=== PATIENT | female | born 1940 | race American Indian/Alaskan Native ===

== ENCOUNTER 2017-08-25 08:20 | Observation (INO) | payer MEDICARE ==
[2017-08-25 09:36] LABS: SQUAMOUS EPITHIAL 1 /hpf (0-5); URINE BACTERIA RARE (<OCC); URINE BILIRUBIN NEGATIVE (NEGATIVE); URINE BLOOD NEGATIVE (NEGATIVE); URINE CLARITY Clear (Clear); URINE COLOR Straw (YELLOW); URINE GLUCOSE (UA) NORMAL (Normal); URINE LEUKOCYTE ESTERASE 1+ Leu/uL (Negative); URINE PROTEIN NEGATIVE (NEGATIVE); URINE UROBILINOGEN NORMAL mg/dL (0.2-1.0)
[2017-08-25 09:39] LABS: BASO # 0.1 K/uL (0.0-0.2); BASO % 1.1 % (0.0-2.0); EOS # 0.1 K/uL (0.0-0.7); EOS % 1.5 % (0.0-4.0); HEMOGLOBIN 11.5 g/dL (11.0-16.0); LYMPH % 27.8 % (20.0-40.0); MEAN CELL VOLUME 93.2 fL (81.0-99.0); MEAN CORPUSCULAR HGB CONC 34.3 g/dL (33.0-37.0); MEAN PLATELET VOLUME 6.6 fL (7.2-11.7); MONO # 0.9 K/uL (0.0-0.8); MONO % 13.3 % (0.0-10.0); NEUT % 56.3 % (50.0-75.0); NRBC % 0.1 % (0.0-2.0); RBC 3.59 Mil/uL (3.80-5.20); RED CELL DISTRIBUTION WIDTH 16.1 % (11.5-14.5)
[2017-08-25 09:47] LABS: PROTHROMBIN TIME 11.6 SECONDS (9.7-12.2)
--- NOTE | 2017-08-25 09:55 | CT ---
PROCEDURE: CT HEAD WITHOUT CONTRAST. HISTORY: left sided numbness COMPARISON: None available. TECHNIQUE: Axial computed tomography images were obtained through the head/brain without intravenous contrast. Radiation dose: Total exam DLP = 868 mGy-cm. This CT exam was performed using one or more of the following dose reduction techniques: Automated exposure control, adjustment of the mA and/or kV according to patient size, and/or use of iterative reconstruction technique. FINDINGS: HEMORRHAGE: No intracranial hemorrhage. BRAIN: No mass effect or edema. Scattered focal lucencies in the subcortical and periventricular white matter suggestive for chronic microvascular ischemic change. Bilateral basal ganglia calcifications. VENTRICLES: Unremarkable. No hydrocephalus. CALVARIUM: Unremarkable. PARANASAL SINUSES: Unremarkable as visualized. No significant inflammatory changes. MASTOID AIR CELLS: Unremarkable as visualized. No inflammatory changes. OTHER FINDINGS: None. IMPRESSION: Chronic microvascular ischemic change. Bilateral basal ganglia calcifications. If symptoms persist, consider further evaluation with MRI.
[2017-08-25 09:56] LABS: ALBUMIN 4.3 g/dL (3.5-5.0); ALT/SGPT 17 U/L (9-52); AST/SGOT 37 U/L (14-36); BLOOD UREA NITROGEN 11 mg/dL (7-17); CALCIUM 9.4 mg/dl (8.6-10.4); GFR AFRICAN-AMERICAN > 60; GFR NON-AFRICAN AMERICAN > 60
[2017-08-25 10:04] LABS: CK-MB 2.28 ng/mL (0.0-3.38)
--- NOTE | 2017-08-25 12:18 | C.PDOC ---
History Of Present Illness 77 y/o female presents to the ER complaining of intermittent left-sided numbness of the left arm and left leg which began at 9:00 am yesterday. Patient states that she is taking Macrobid which was given by her PMD for UTI. Patient reports that she feels weak sometimes when she has numbness. Time Seen by Provider: 08/25/17 08:32 Chief Complaint (Nursing): Weakness/Neurological Deficit History Per: Patient History/Exam Limitations: no limitations Onset/Duration Of Symptoms: Days Current Symptoms Are (Timing): Still Present Severity: Moderate Past Medical History Reviewed: Historical Data, Nursing Documentation, Vital Signs Vital Signs: Last Vital Signs Temp 97.7 F 08/25/17 08:28 Pulse 92 H 08/25/17 13:20 Resp 16 08/25/17 13:20 BP 142/68 08/25/17 13:20 Pulse Ox 100 08/25/17 14:55 - Medical History PMH: Hypothyroidism Other Surgeries: Hx of surgeries Family History: States: No Known Family Hx - Social History Hx Alcohol Use: No Hx Substance Use: No - Immunization History Hx Tetanus Toxoid Vaccination: No Hx Influenza Vaccination: No Hx Pneumococcal Vaccination: Yes Review Of Systems Except As Marked, All Systems Reviewed And Found Negative. Constitutional: Negative for: Fever, Chills Neurological: Positive for: Numbness (left-sided numbness). Negative for: Weakness Physical Exam - Physical Exam Appears: Non-toxic, No Acute Distress Skin: Normal Color, Warm, Dry Head: Atraumatic, Normacephalic Eye(s): bilateral: Normal Inspection Nose: Normal Oral Mucosa: Moist Neck: Supple Chest: Symmetrical Cardiovascular: Rhythm Regular Respiratory: Normal Breath Sounds, No Rales, No Rhonchi, No Wheezing Extremity: Normal ROM Neurological/Psych: Oriented x3, Normal Speech, Normal Motor, No Normal Sensation (decreased sensation in left arm and left leg) ED Course And Treatment - Laboratory Results Result Diagrams: 08/25/17 09:33 08/25/17 09:33 O2 Sat by Pulse Oximetry: 100 (RA) Pulse Ox Interpretation: Normal - Other Rad CXR X-Ray: Viewed By Me, Read By Radiologist Interpretation: Chest x-ray single frontal view. History: Left-sided numbness. Comparison: None available. Findings: Enlarged ectatic aorta. Cardiomegaly. Right paratracheal prominence may represent prominent vasculature. Mild venous congestion. Degenerative changes in the spine and shoulders. Impression: Enlarged ectatic aorta. Cardiomegaly. Right paratracheal prominence may represent prominent vasculature. Mild venous congestion. - CT Scan/US CT-Head Other Rad Studies (CT/US): Read By Radiologist, Radiology Report Reviewed CT/US Interpretation: PROCEDURE: CT HEAD WITHOUT CONTRAST. HISTORY: left sided numbness. COMPARISON: None available. TECHNIQUE: Axial computed tomography images were obtained through the head/brain without intravenous contrast. Radiation dose: Total exam DLP = 868 mGy-cm. This CT exam was performed using one or more of the following dose reduction techniques: Automated exposure control, adjustment of the mA and/or kV according to patient size, and/or use of iterative reconstruction technique. FINDINGS: HEMORRHAGE: No intracranial hemorrhage. BRAIN: No mass effect or edema. Scattered focal lucencies in the subcortical and periventricular white matter suggestive for chronic microvascular ischemic change. Bilateral basal ganglia calcifications. VENTRICLES: Unremarkable. No hydrocephalus. CALVARIUM: Unremarkable. PARANASAL SINUSES: Unremarkable as visualized. No significant inflammatory changes. MASTOID AIR CELLS: Unremarkable as visualized. No inflammatory changes. OTHER FINDINGS: None. IMPRESSION: Chronic microvascular ischemic change. Bilateral basal ganglia calcifications. If symptoms persist, consider further evaluation with MRI. Progress Note: Labs, CXR, and CT- Head ordered.Case discussed with Dr.Naresh Shaikh. MRI was ordered and consult for was ordered. Patient has been accepted by Dr.Naresh Shaikh for Telemetry observation. Disposition - Disposition Disposition: HOSPITALIZED Disposition Time: 12:46 Condition: FAIR - Clinical Impression Clinical Impression: Numbness and tingling of left upper and lower extremity - PA / [employer] / Resident Statement MD/DO has reviewed & agrees with the documentation as recorded. - Scribe Statement The provider has reviewed the documentation as recorded by the Rivka Magallanes Provider Attestation All medical record entries made by the Adeolaibbc were at my direction and personally dictated by me. I have reviewed the chart and agree that the record accurately reflects my personal performance of the history, physical exam, medical decision making, and the department course for this patient. I have also personally directed, reviewed, and agree with the discharge instructions and disposition.
--- NOTE | 2017-08-25 12:39 | RAD ---
Chest x-ray single frontal view History: Left-sided numbness. Comparison: None available. Findings: Enlarged ectatic aorta. Cardiomegaly. Right paratracheal prominence may represent prominent vasculature. Mild venous congestion. Degenerative changes in the spine and shoulders. Impression: Enlarged ectatic aorta. Cardiomegaly. Right paratracheal prominence may represent prominent vasculature. Mild venous congestion.
--- NOTE | 2017-08-25 13:29 | CP.PCM.CON ---
History of Present Illness - History of Present Illness History of Present Illness: 77 yr old woman who started to suddenly have left arm and left leg numbness and tingling, new onset. Miss denis says that she has not had similar spells in the past, no headache, no weakness, no aphasia, no other complaints. These symptoms resolved and she is now back to baseline. PMH/PSH: Hypertension FH/SH: lives alone, has one child. no tobacco, no etoh. All: penicilin on exam: Normal neurological examination. no drift. Past Patient History - Past Social History Smoking Status: Never Smoked - ENDOCRINE/METABOLIC Hx Hypothyroidism: Yes - PSYCHIATRIC Hx Substance Use: No - SURGICAL HISTORY Hx Hysterectomy: Yes Hx Thyroidectomy: Yes - ANESTHESIA Hx Anesthesia: Yes Hx Anesthesia Reactions: No Meds Allergies/Adverse Reactions: Allergies Allergy/AdvReac Type Severity Reaction Status Date / Time aspirin Allergy Verified 08/25/17 08:36 Penicillins Allergy Verified 08/25/17 08:36 shellfish derived Allergy Verified 08/25/17 08:36 Results - Vital Signs Recent Vital Signs: Last Vital Signs Temp 97.7 F 08/25/17 08:28 Pulse 92 H 08/25/17 13:20 Resp 16 08/25/17 13:20 BP 142/68 08/25/17 13:20 Pulse Ox 100 08/25/17 13:20 - Labs Result Diagrams: 08/25/17 09:33 08/25/17 09:33 Labs: Laboratory Results - last 24 hr 08/25/17 08/25/17 08/25/17 09:24 09:33 09:33 WBC 7.0 RBC 3.59 L Hgb 11.5 Hct 33.4 L MCV 93.2 MCH 32.0 H MCHC 34.3 RDW 16.1 H Plt Count 370 MPV 6.6 L Neut % (Auto) 56.3 Lymph % (Auto) 27.8 [place] % (Auto) 13.3 H Eos % (Auto) 1.5 Baso % (Auto) 1.1 Neut # (Auto) 4.0 Lymph # (Auto) 2.0 [place] # (Auto) 0.9 H Eos # (Auto) 0.1 Baso # (Auto) 0.1 PT 11.6 INR 1.0 APTT 26 Sodium Potassium Chloride Carbon Dioxide Anion Gap BUN Creatinine Est GFR ( Amer) Est GFR (Non-Af Amer) Random Glucose Calcium Total Bilirubin AST ALT Alkaline Phosphatase Total Creatine Kinase CK-MB (Mass) Troponin I Total Protein Albumin Globulin Albumin/Globulin Ratio Urine Color Straw Urine Clarity Clear Urine pH 7.0 Ur Specific [place] 1.008 Urine Protein Negative Urine Glucose (UA) Normal Urine Ketones Negative Urine Blood Negative Urine Nitrate Negative Urine Bilirubin Negative Urine Urobilinogen Normal Ur Leukocyte Esterase 1+ H Urine WBC (Auto) 2 Urine RBC (Auto) < 1 Ur Squamous Epith Cells 1 Urine Bacteria Rare 08/25/17 09:33 WBC RBC Hgb Hct MCV MCH MCHC RDW Plt Count MPV Neut % (Auto) Lymph % (Auto) [place] % (Auto) Eos % (Auto) Baso % (Auto) Neut # (Auto) Lymph # (Auto) [place] # (Auto) Eos # (Auto) Baso # (Auto) PT INR APTT Sodium 137 Potassium 4.1 Chloride 93 L Carbon Dioxide 26 Anion Gap 22 H BUN 11 Creatinine 0.7 Est GFR ( Amer) > 60 Est GFR (Non-Af Amer) > 60 Random Glucose 99 Calcium 9.4 Total Bilirubin 0.7 AST 37 H ALT 17 Alkaline Phosphatase 75 Total Creatine Kinase 125 CK-MB (Mass) 2.28 Troponin I < 0.0120 Total Protein 8.7 H Albumin 4.3 Globulin 4.4 H Albumin/Globulin Ratio 1.0 Urine Color Urine Clarity Urine pH Ur Specific [place] Urine Protein Urine Glucose (UA) Urine Ketones Urine Blood Urine Nitrate Urine Bilirubin Urine Urobilinogen Ur Leukocyte Esterase Urine WBC (Auto) Urine RBC (Auto) Ur Squamous Epith Cells Urine Bacteria - Imaging and Cardiology CT scan - pelvis Status: Image reviewed by me, Report reviewed by me Assessment & Plan - Assessment and Plan (Free Text) Assessment: 77 yr old woman with what may be lacunar infarct in right thalamus area, now resolved. Plan: 1 MRI Brain needed. If normal, then patient may go home. Thank you DR. Hilario
--- NOTE | 2017-08-25 14:17 | CP.PCM.HP ---
History of Present Illness - History of Present Illness History of Present Illness: HPI: Patient is a 77 year old female with a past medical history of HTN, hypothyroidism, benign right breast mass, and vitamin B 12 deficiency who presents to the ED complaining of left sided numbness and tingling of the upper and lower extremity. Patient says this has been coming and going for 2 days. Patient says she usually feels numbness in her arms and legs from peripheral neuropathy but it has been getting worse the past couple days. Patient says it started worsening after she took the macrobid and was sitting watching TV. She it lasted about an hour but goes away when she gets up to walk, drinks water, or takes her gabapentin. Patient admits to associated SOB, and "funny sensation " in chest that she cant elaborate on with redness of the chest wall. She also admits to left sided headache that started this morning. She denies any associated dizziness, changes in vision/hearing, aphasia, dysphagia, changes in taste, syncope, seizure, loss of balance, dysuria, cough, and weakness. PMH: HTN, hypothyroidism, benign right breast mass, vitamin B 12 deficiency, DMII (previously elevated HbA1c but diet controlled) Meds: * HCTZ 25 mg daily * Levoxyl 25 mcg daily * Gabapentin 300 mg BID * Albuterol 2 puffs INH BID PRN * Vitamin B-12 1 mg daily * Vitamin B-6 100 mg daily * Calcium supplement Allergies: ASA, PCN, Shellfish PSH: Thyroidectomy, Hysterectomy Contact: Laura Santiago Present on Admission - Present on Admission Any Indicators Present on Admission: No Review of Systems - Review of Systems All systems: reviewed and no additional remarkable complaints except (as per HPI ) Past Patient History - Past Social History Smoking Status: Never Smoked - ENDOCRINE/METABOLIC Hx Hypothyroidism: Yes - PSYCHIATRIC Hx Substance Use: No - SURGICAL HISTORY Hx Hysterectomy: Yes Hx Thyroidectomy: Yes - ANESTHESIA Hx Anesthesia: Yes Hx Anesthesia Reactions: No Meds Allergies/Adverse Reactions: Allergies Allergy/AdvReac Type Severity Reaction Status Date / Time aspirin Allergy Verified 08/25/17 08:36 Penicillins Allergy Verified 08/25/17 08:36 shellfish derived Allergy Verified 08/25/17 08:36 Physical Exam - Constitutional Appears: Non-toxic, No Acute Distress - Head Exam Head Exam: ATRAUMATIC, NORMAL INSPECTION, NORMOCEPHALIC - Eye Exam Eye Exam: EOMI, Normal appearance, PERRL - ENT Exam ENT Exam: Mucous Membranes Moist - Neck Exam Neck exam: Positive for: Normal Inspection - Respiratory Exam Respiratory Exam: Clear to Auscultation Bilateral, NORMAL BREATHING PATTERN - Cardiovascular Exam Cardiovascular Exam: RRR, +S1, +S2. absent: Diastolic murmur, Gallop, Rubs, Systolic Murmur - GI/Abdominal Exam GI & Abdominal Exam: Normal Bowel Sounds, Soft. absent: Distended, Tenderness - Extremities Exam Extremities exam: Positive for: normal inspection. Negative for: calf tenderness, pedal edema - Neurological Exam Neurological exam: Alert, Oriented x3 - Expanded Neurological Exam Expanded Patient oriented to: person, place, time Cranial nerves: EOM's Intact: Normal, Facial [place] w/Forehead Movement: Normal , Facial [place] w/o Forehead Movement: Normal, Facial Sensation: Normal, Tongue Deviation: Normal Cerebellar Function: Heel to [place]: Normal Upper motor neuron: Pronator Drift: Normal Sensory exam: Lower Extremity Light Touch: Normal, Upper Extremity Light Touch: Normal Neuro motor strength exam: Left Upper Extremity: 5, Right Upper Extremity: 5, Left Lower Extremity: 5, Right Lower Extremity: 5 Coma Scale Eye Opening: SPONTANEOUS Coma Scale Motor Response: OBEYS COMMANDS Coma Scale Verbal: Oriented Coma Scale Total: 15 - Psychiatric Exam Psychiatric exam: Normal Affect, Normal Mood - Skin Skin Exam: Dry, Intact, Normal Color, Warm Results - Vital Signs Recent Vital Signs: Last Vital Signs Temp 97.7 F 08/25/17 08:28 Pulse 92 H 08/25/17 13:20 Resp 16 08/25/17 13:20 BP 142/68 08/25/17 13:20 Pulse Ox 100 08/25/17 13:20 - Labs Result Diagrams: 08/25/17 09:33 08/25/17 09:33 Labs: Laboratory Results - last 24 hr 08/25/17 08/25/17 08/25/17 09:24 09:33 09:33 WBC 7.0 RBC 3.59 L Hgb 11.5 Hct 33.4 L MCV 93.2 MCH 32.0 H MCHC 34.3 RDW 16.1 H Plt Count 370 MPV 6.6 L Neut % (Auto) 56.3 Lymph % (Auto) 27.8 [place] % (Auto) 13.3 H Eos % (Auto) 1.5 Baso % (Auto) 1.1 Neut # (Auto) 4.0 Lymph # (Auto) 2.0 [place] # (Auto) 0.9 H Eos # (Auto) 0.1 Baso # (Auto) 0.1 PT 11.6 INR 1.0 APTT 26 Sodium Potassium Chloride Carbon Dioxide Anion Gap BUN Creatinine Est GFR ( Amer) Est GFR (Non-Af Amer) Random Glucose Calcium Total Bilirubin AST ALT Alkaline Phosphatase Total Creatine Kinase CK-MB (Mass) Troponin I Total Protein Albumin Globulin Albumin/Globulin Ratio Urine Color Straw Urine Clarity Clear Urine pH 7.0 Ur Specific [place] 1.008 Urine Protein Negative Urine Glucose (UA) Normal Urine Ketones Negative Urine Blood Negative Urine Nitrate Negative Urine Bilirubin Negative Urine Urobilinogen Normal Ur Leukocyte Esterase 1+ H Urine WBC (Auto) 2 Urine RBC (Auto) < 1 Ur Squamous Epith Cells 1 Urine Bacteria Rare 08/25/17 09:33 WBC RBC Hgb Hct MCV MCH MCHC RDW Plt Count MPV Neut % (Auto) Lymph % (Auto) [place] % (Auto) Eos % (Auto) Baso % (Auto) Neut # (Auto) Lymph # (Auto) [place] # (Auto) Eos # (Auto) Baso # (Auto) PT INR APTT Sodium 137 Potassium 4.1 Chloride 93 L Carbon Dioxide 26 Anion Gap 22 H BUN 11 Creatinine 0.7 Est GFR ( Amer) > 60 Est GFR (Non-Af Amer) > 60 Random Glucose 99 Calcium 9.4 Total Bilirubin 0.7 AST 37 H ALT 17 Alkaline Phosphatase 75 Total Creatine Kinase 125 CK-MB (Mass) 2.28 Troponin I < 0.0120 Total Protein 8.7 H Albumin 4.3 Globulin 4.4 H Albumin/Globulin Ratio 1.0 Urine Color Urine Clarity Urine pH Ur Specific [place] Urine Protein Urine Glucose (UA) Urine Ketones Urine Blood Urine Nitrate Urine Bilirubin Urine Urobilinogen Ur Leukocyte Esterase Urine WBC (Auto) Urine RBC (Auto) Ur Squamous Epith Cells Urine Bacteria Assessment & Plan - Assessment and Plan (Free Text) Plan: Left sided paresthesias * Dr. Hilario (Neuro) consulted, help appreciated * CXR: Enlarged ectatic aorta. Cardiomegaly. Right paratracheal prominence may represent prominent vasculature. Mild venous congestion. * EKG: sinus rhythm at ~90 bpm * Head CT: Chronic microvascular ischemic change. Bilateral basal ganglia calcifications. If symptoms persist, consider further evaluation with MRI. * Brain MRI: Limited motion degraded study. No of acute intracranial hemorrhage or infarct. Mild chronic white matter and basal nuclei ischemic changes. Moderate volume loss. * Head and Neck MRA: Limited motion degraded study. There is mild irregular narrowing of the cavernous carotid arteries corresponding to partially calcified atherosclerotic plaque at the lateral which is seen to better advantage on prior CT scan of the brain. 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 In addition, there is marked asymmetry of the distal vertebral arteries right-side of which is larger in caliber more dominant than the left. The distal left vertebral artery appears to terminate in a left-sided PICA as above. No definitive radiographic evidence of large aneurysm nor vascular malformation. * Echo: Overall normal lv systolic funciton & wall motion with lvef of 65-70%, grade 1 LV diastolic dysfunction, sclerotic trileaflet aortic valve, sclerotic mitral leaflets with mild mr; mild tr with normal pulmonary systolic pressures of 27 mm of hg; normal size sclerotic aortic root. * Hold ASA for now due to allergy * Crestor 5 mg PO HS * Continue home gabapentin 300 mg BID * PT eval and treat Recent history of UTI * Treated with Macrobid * f/u urine culture Elevated AST * Monitor with morning labs History of HTN * Hold HCTZ * Lisinopril 10 mg PO QD Questionable History of DM * Not on home meds * HbA1c * Lipid panel * TSH * T4 * Urine microalbumin/Cr History of hypothyroidism * TSH * Free T4 * Continue home levoxyl 25 mcg daily
--- NOTE | 2017-08-25 15:23 | MRI ---
PROCEDURE: MRI BRAIN WITHOUT CONTRAST HISTORY: Left-sided numbness COMPARISON: Correlation made with concurrent MRI and MRA of the neck and brain. Comparison also made with CT scan of the brain performed earlier same day at 0933 hours. . TECHNIQUE: Multiplanar, multisequence MR images of the brain were obtained without intravenous contrast enhancement. FINDINGS: HEMORRHAGE: No acute parenchymal, subarachnoid or extra-axial hemorrhage. No evidence of hemosiderin deposition identified on gradient echo weighted sequence. DWI: No evidence of an acute or early subacute infarction seen on diffusion imaging. . BRAIN PARENCHYMA: Mild diffuse/ confluent chronic periventricular white matter ischemic changes seen extending peripherally into the deep white matter both cerebral hemispheres. Additionally, multiple more discrete round and elliptical shaped chronic appearing lacunar type infarcts scattered about the deep and subcortical white matter bilaterally. There are a few scattered chronic bilateral basal nuclei lacunar type infarcts also. . No obvious parenchymal nor extra-axial mass or collection identified on this noncontrast study. Moderate generalized volume loss. VENTRICLES: No obstructive hydrocephalus. CRANIUM: Calvarium appears intact. . ORBITS: Orbits and contents some grossly unremarkable. PARANASAL SINUSES/MASTOIDS: Minor mucosal thickening noted within a few ethmoid air cells VASCULAR SYSTEM: Visualized major vascular flow voids at skull base patent. OTHER FINDINGS: None. IMPRESSION: Limited motion degraded study. No of acute intracranial hemorrhage or infarct. Mild chronic white matter and basal nuclei ischemic changes. Moderate volume loss.
--- NOTE | 2017-08-25 15:43 | MRI ---
PROCEDURE: MRA brain dated 08/25/2017. HISTORY: Left-sided numbness COMPARISON: Correlation made with concurrent MRI of the brain. TECHNIQUE: 3D time of flight MR angiography of the intracranial arteries was performed. Rotating maximum intensity projection images were generated. The examination is somewhat limited due to motion artifact. FINDINGS: INTERNAL CAROTID ARTERIES: Unremarkable. The skull base and petrous segments of the IA distal internal carotid artery is widely patent. There is mild irregularity of the proximal and mid cavernous carotid arteries corresponding to partially calcified atherosclerotic plaque, the latter of which is last seen to better advantage on prior CT scan brain. ANTERIOR CEREBRAL ARTERIES: The right A1 segment is not visualized and presumably on atretic or significantly hypoplastic. Both A2 segments are effectively fed from the left side. . MIDDLE CEREBRAL ARTERIES: There is mild asymmetry of the supraclinoid carotid artery is and proximal middle cerebral arteries right-sided which is slightly smaller in caliber than the left which is likely due to an atresia or significant hypoplasia of the right A1 segment with adaptive narrowing. Apart from this mild asymmetry, the middle cerebral arteries are patent. There is relative symmetry of the distal branches of both middle cerebral arteries however. POSTERIOR CIRCULATION: Re- demonstrated is marked asymmetry of the distal vertebral arteries right-sided which is larger in caliber more dominant than the left. The left vertebral artery appears to terminate in a left-sided posterior inferior cerebellar artery (PICA). Basilar artery is patent. The both proximal posterior cerebral arteries are patent and symmetric. The the mid to distal posterior cerebral arteries so far as can be seen are patent and appear relatively symmetric however the distal-most margins of the posterior cerebral arteries not visualized presumably due to small caliber and tortuosity. ANEURYSM/ VASCULAR MALFORMATIONS: No evidence of large aneurysm nor vascular malformation. OTHER FINDINGS: None. IMPRESSION: Limited motion degraded study. 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 In addition, there is marked asymmetry of the distal vertebral arteries right-side of which is larger in caliber more dominant than the left. The distal left vertebral artery appears to terminate in a left-sided PICA as above No definitive radiographic evidence of large aneurysm nor vascular malformation.
--- NOTE | 2017-08-25 16:05 | CARD ---
APPROVED REPORT EXAM: Two-dimensional and M-mode echocardiogram with Doppler and color Doppler. Other Information Quality : [employer] : INDICATION CVA/TIA 2D DIMENSIONS IVSd0.8 (0.7-1.1cm)LVDd3.8 (3.9-5.9cm) PWd0.8 (0.7-1.1cm)LVDs2.0 (2.5-4.0cm) FS (%) 46.4 %LVEF (%)70.0 (>50%) M-Mode DIMENSIONS Left Atrium (MM)3.15 (2.5-4.0cm)Aortic Root3.30 (2.2-3.7cm) Aortic Cusp Exc.2.21 (1.5-2.0cm) Mitral Valve MV E Kxgwmuaq63.1cm/sMV A Xzgamozz212.3cm/sE/A ratio0.7 TDI E/Lateral E'0.0E/Medial E'0.0 Tricuspid Valve TR Peak [id number]/sTR Peak Gr.27mmHg <Conclusion> poor window. tds. la,lv & ra rv size appears normal. overall normal lv systolic funciton & wall motion with lvef of 65-70%. lv diastolic dysfunciton grade one. sclerotic trileaflet aortic carmen. sclerotic mitral leaflets with mild mr. tv appears normal. mild tr with normal pulmonary systolic pressures of 27 mm of hg. no pericardial effusion. normal size sclerotic aortic root.
[2017-08-25 16:25] VITALS: RESP 20
--- NOTE | 2017-08-25 18:25 | MRI ---
PROCEDURE: MR Angiography of the neck without contrast HISTORY: Left-sided numbness COMPARISON: None available. TECHNIQUE: 3D [id number] angiography of the neck was performed. Rotating maximum intensity projection images of the cervical carotid and vertebral arteries were generated. The origins of the common carotid arteries were not visualized, which is a limitation inherent to the non-contrast time of flight technique. Study is limited by motion artifact FINDINGS: RIGHT CAROTID ARTERIES: Common Carotid Artery: Normal. Carotid Bifurcation: Normal. Internal Carotid Artery:Normal. External Carotid Artery (proximal branches): Normal. LEFT CAROTID ARTERIES: Common Carotid Artery: Normal. Carotid Bifurcation: Normal. Internal Carotid Artery:Normal. External Carotid Artery (proximal branches): Normal. VERTEBRAL ARTERIES: There is marked asymmetry of the vertebral arteries right-sided which is larger in caliber/more dominant than the left. OTHER FINDINGS: None. IMPRESSION: Limited motion degraded study. Normal MR Angiography of the neck. . See above discussion for additional details -incidental findings.
[2017-08-26] MEDS ORDERED: Levothyroxine 25 MCG TAB PO SCH (06:30)
[2017-08-26 07:47] LABS: BASO # 0.1 K/uL (0.0-0.2); BASO % 1.4 % (0.0-2.0); EOS # 0.1 K/uL (0.0-0.7); EOS % 1.8 % (0.0-4.0); HEMOGLOBIN 10.2 g/dL (11.0-16.0); LYMPH # 1.8 K/uL (1.0-4.3); LYMPH % 27.1 % (20.0-40.0); MEAN CELL VOLUME 93.3 fL (81.0-99.0); MEAN CORPUSCULAR HEMOGLOBIN 31.9 pg (27.0-31.0); MEAN CORPUSCULAR HGB CONC 34.2 g/dL (33.0-37.0); MEAN PLATELET VOLUME 6.8 fL (7.2-11.7); MONO # 0.8 K/uL (0.0-0.8); MONO % 12.1 % (0.0-10.0); NEUT # 3.9 K/uL (1.8-7.0); NEUT % 57.6 % (50.0-75.0); RBC 3.21 Mil/uL (3.80-5.20); RED CELL DISTRIBUTION WIDTH 15.1 % (11.5-14.5); WHITE BLOOD COUNT 6.8 K/uL (4.8-10.8)
--- NOTE | 2017-08-26 08:22 | CP.PCM.PN ---
Subjective - Date & Time of Evaluation Date of Evaluation: 08/26/17 Time of Evaluation: 08:16 - Subjective Subjective: Ms. Atkins was seen and examined at the bedside. She is alert, oriented in all spheres. She denies any headache, dizziness, numbness, nausea. She is able to follow simple commands. She further claims of her chronic paresthesia and her symptoms from yesterday is chronic. MRA of th ead showed partially calcified atherosclerotic plaque in the carotid arteries. [place] MRI of the brain and neck are within normal limits. There was no untoward events overnight. Objective - Vital Signs/Intake and Output Vital Signs (last 24 hours): Temp Pulse Resp BP Pulse Ox 98.2 F 88 20 121/69 99 08/25/17 23:00 08/25/17 23:30 08/25/17 23:00 08/25/17 23:00 08/25/17 23:30 - Medications Medications: Current Medications Calcium Carbonate (Oscal) 500 mg PO DAILY [facility] Cyanocobalamin (Vitamin B12 1000 Mcg Tab) 1,000 mcg PO DAILY [facility] Gabapentin (Neurontin) 300 mg PO BID PRN PRN Reason: pain Last Admin: 08/25/17 20:24 Dose: 300 mg Levothyroxine Sodium (Synthroid) 25 mcg PO DAILY@0630 [facility] Last Admin: 08/26/17 06:06 Dose: 25 mcg Lisinopril (Zestril) 10 mg PO DAILY [facility] Pyridoxine HCl (Vitamin B6) 100 mg PO DAILY [facility] Rosuvastatin Calcium (Crestor) 5 mg PO HS [facility] Last Admin: 08/25/17 22:02 Dose: 5 mg - Labs Labs: 08/26/17 07:39 08/25/17 09:33 PT 11.6 SECONDS (9.7-12.2) 08/25/17 09:33 INR 1.0 08/25/17 09:33 APTT 26 SECONDS (21-34) 08/25/17 09:33 - Constitutional Appears: No Acute Distress - Head Exam Head Exam: NORMAL INSPECTION - Neurological Exam Neurological Exam: Alert, Awake Neuro motor strength exam: Left Upper Extremity: 4, Right Upper Extremity: 4, Left Lower Extremity: 4, Right Lower Extremity: 4 Additional comments: She is alert, oriented, follow all simple commands, and sensation is intact. Assessment and Plan (1) Numbness and tingling of left upper and lower extremity Assessment & Plan: Case discussed with Dr. Hilario, continue all current medical regimen. Recommend plavix 75 mg po daily. May discharge to home and follow up with her physician. Status: Acute
[2017-08-26 08:28] VITALS: BP 138/79; TEMP 97.5; O2SAT 98
[2017-08-26 08:45] LABS: ALB/GLOB RATIO 0.9 (1.0-2.1); ALBUMIN 3.6 g/dL (3.5-5.0); ALT/SGPT 17 U/L (9-52); AST/SGOT 29 U/L (14-36); BLOOD UREA NITROGEN 14 mg/dL (7-17); CALCIUM 8.9 mg/dl (8.6-10.4); GFR AFRICAN-AMERICAN > 60; GFR NON-AFRICAN AMERICAN > 60; HDL CHOLESTEROL 35 mg/dL (30-70)
[2017-08-26 08:55] LABS: LDL CHOLESTEROL 89 mg/dL (0-129)
[2017-08-26 09:39] VITALS: PULSE 80
[2017-08-26] MEDS ORDERED: Pyridoxine 100 mg Tab PO SCH (10:00)
--- NOTE | 2017-08-26 17:08 | CP.PCM.DIS ---
<Koki Parish - Last Filed: 08/26/17 17:01> Provider - Provider Date of Admission: 08/25/17 12:45 Attending physician: Rayshawn Shaikh MD Primary care physician: Dr. Regan Consults: Dr. Hilario Time Spent in preparation of Discharge (in minutes): 35 Diagnosis - Discharge Diagnosis (1) Numbness and tingling of left upper and lower extremity Status: Acute Hospital Course - Lab Results Lab Results: Micro Results 08/25/17 09:06 Urine Urine Culture - Final 50-100,000 CFU/ML. MULTIPLE SPECIES. SUGGEST REPEAT SPECIMEN. Most Recent Lab Values WBC 6.8 K/uL (4.8-10.8) 08/26/17 07:39 RBC 3.21 Mil/uL (3.80-5.20) L 08/26/17 07:39 Hgb 10.2 g/dL (11.0-16.0) L 08/26/17 07:39 Hct 29.9 % (34.0-47.0) L 08/26/17 07:39 MCV 93.3 fL (81.0-99.0) 08/26/17 07:39 MCH 31.9 pg (27.0-31.0) H 08/26/17 07:39 MCHC 34.2 g/dL (33.0-37.0) 08/26/17 07:39 RDW 15.1 % (11.5-14.5) H 08/26/17 07:39 Plt Count 345 K/uL (130-400) 08/26/17 07:39 MPV 6.8 fL (7.2-11.7) L 08/26/17 07:39 Neut % (Auto) 57.6 % (50.0-75.0) 08/26/17 07:39 Lymph % (Auto) 27.1 % (20.0-40.0) 08/26/17 07:39 [place] % (Auto) 12.1 % (0.0-10.0) H 08/26/17 07:39 Eos % (Auto) 1.8 % (0.0-4.0) 08/26/17 07:39 Baso % (Auto) 1.4 % (0.0-2.0) 08/26/17 07:39 Neut # (Auto) 3.9 K/uL (1.8-7.0) 08/26/17 07:39 Lymph # (Auto) 1.8 K/uL (1.0-4.3) 08/26/17 07:39 [place] # (Auto) 0.8 K/uL (0.0-0.8) 08/26/17 07:39 Eos # (Auto) 0.1 K/uL (0.0-0.7) 08/26/17 07:39 Baso # (Auto) 0.1 K/uL (0.0-0.2) 08/26/17 07:39 PT 11.6 SECONDS (9.7-12.2) 08/25/17 09:33 INR 1.0 08/25/17 09:33 APTT 26 SECONDS (21-34) 08/25/17 09:33 Sodium 137 mmol/L (132-148) 08/26/17 07:39 Potassium 3.7 mmol/L (3.6-5.2) 08/26/17 07:39 Chloride 98 mmol/L (98-107) 08/26/17 07:39 Carbon Dioxide 28 mmol/L (22-30) 08/26/17 07:39 Anion Gap 15 (10-20) 08/26/17 07:39 BUN 14 mg/dL (7-17) 08/26/17 07:39 Creatinine 0.7 mg/dL (0.7-1.2) 08/26/17 07:39 Est GFR ( Amer) > 60 08/26/17 07:39 Est GFR (Non-Af Amer) > 60 08/26/17 07:39 Random Glucose 103 mg/dL (65-105) 08/26/17 07:39 Hemoglobin A1c 6.4 % (4.2-6.5) 08/26/17 07:39 Calcium 8.9 mg/dl (8.6-10.4) 08/26/17 07:39 Phosphorus 4.1 mg/dL (2.5-4.5) 08/26/17 07:39 Magnesium 2.1 mg/dL (1.6-2.3) 08/26/17 07:39 Total Bilirubin 0.5 mg/dL (0.2-1.3) 08/26/17 07:39 AST 29 U/L (14-36) 08/26/17 07:39 ALT 17 U/L (9-52) 08/26/17 07:39 Alkaline Phosphatase 59 U/L (38-126) 08/26/17 07:39 Total Creatine Kinase 125 U/L (30-135) 08/25/17 09:33 CK-MB (Mass) 2.28 ng/mL (0.0-3.38) 08/25/17 09:33 Troponin I < 0.0120 ng/mL (0.00-0.120) 08/25/17 09:33 Total Protein 7.5 g/dL (6.3-8.3) 08/26/17 07:39 Albumin 3.6 g/dL (3.5-5.0) 08/26/17 07:39 Globulin 3.8 gm/dL (2.2-3.9) 08/26/17 07:39 Albumin/Globulin Ratio 0.9 (1.0-2.1) L 08/26/17 07:39 Triglycerides 53 mg/dL (0-149) D 08/26/17 07:39 Cholesterol 143 mg/dL (0-199) 08/26/17 07:39 LDL Cholesterol Direct 89 mg/dL (0-129) 08/26/17 07:39 HDL Cholesterol 35 mg/dL (30-70) 08/26/17 07:39 Free T4 0.89 ng/dL (0.78-2.19) 08/26/17 07:39 TSH 3rd Generation 0.61 mIU/L (0.46-4.68) 08/26/17 07:39 Urine Color Straw (YELLOW) 08/25/17 09:24 Urine Clarity Clear (Clear) 08/25/17 09:24 Urine pH 7.0 (5.0-8.0) 08/25/17 09:24 Ur Specific [place] 1.008 (1.003-1.030) 08/25/17 09:24 Urine Protein Negative mg/dL (NEGATIVE) 08/25/17 09:24 Urine Glucose (UA) Normal mg/dL (Normal) 08/25/17 09:24 Urine Ketones Negative mg/dL (NEGATIVE) 08/25/17 09:24 Urine Blood Negative (NEGATIVE) 08/25/17 09:24 Urine Nitrate Negative (NEGATIVE) 08/25/17 09:24 Urine Bilirubin Negative (NEGATIVE) 08/25/17 09:24 Urine Urobilinogen Normal mg/dL (0.2-1.0) 08/25/17 09:24 Ur Leukocyte Esterase 1+ Enio/uL (Negative) H 08/25/17 09:24 Urine WBC (Auto) 2 /hpf (0-5) 08/25/17 09:24 Urine RBC (Auto) < 1 /hpf (0-3) 08/25/17 09:24 Ur Squamous Epith Cells 1 /hpf (0-5) 08/25/17 09:24 Urine Bacteria Rare (<OCC) 08/25/17 09:24 Urine Microalbumin < 6.0 mg/L (0.0-16.6) 08/26/17 14:42 - Hospital Course Hospital Course: On admission: Patient is a 77 year old female with a past medical history of HTN, hypothyroidism, benign right breast mass, and vitamin B 12 deficiency who presents to the ED complaining of left sided numbness and tingling of the upper and lower extremity. Patient says this has been coming and going for 2 days. Patient says she usually feels numbness in her arms and legs from peripheral neuropathy but it has been getting worse the past couple days. Patient says it started worsening after she took the macrobid and was sitting watching TV. She it lasted about an hour but goes away when she gets up to walk, drinks water, or takes her gabapentin. Patient admits to associated SOB, and "funny sensation " in chest that she cant elaborate on with redness of the chest wall. She also admits to left sided headache that started this morning. She denies any associated dizziness, changes in vision/hearing, aphasia, dysphagia, changes in taste, syncope, seizure, loss of balance, dysuria, cough, and weakness. Hospital course: Patient was seen by Dr. Hilario to rule out TIA. The following imaging and tests were done: * CXR: Enlarged ectatic aorta. Cardiomegaly. Right paratracheal prominence may represent prominent vasculature. Mild venous congestion. * EKG: sinus rhythm at ~90 bpm * Head CT: Chronic microvascular ischemic change. Bilateral basal ganglia calcifications. If symptoms persist, consider further evaluation with MRI. * Brain MRI: Limited motion degraded study. No of acute intracranial hemorrhage or infarct. Mild chronic white matter and basal nuclei ischemic changes. Moderate volume loss. * Head and Neck MRA: Limited motion degraded study. There is mild irregular narrowing of the cavernous carotid arteries corresponding to partially calcified atherosclerotic plaque at the lateral which is seen to better advantage on prior CT scan of the brain. 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 In addition, there is marked asymmetry of the distal vertebral arteries right-side of which is larger in caliber more dominant than the left. The distal left vertebral artery appears to terminate in a left-sided PICA as above. No definitive radiographic evidence of large aneurysm nor vascular malformation. * Echo: Overall normal lv systolic funciton & wall motion with lvef of 65-70%, grade 1 LV diastolic dysfunction, sclerotic trileaflet aortic valve, sclerotic mitral leaflets with mild mr; mild tr with normal pulmonary systolic pressures of 27 mm of hg; normal size sclerotic aortic root. Aspirin and plavix were held due to severe allergy. Patient was started on crestor and gabapentin (home medication for diabetic neuropathy). HCTZ was stopped in favor of lisinopril. Patient had a normal lipid panel, TSH, and T4. HbA1c was 6.4. Patient was cleared for discharge per Dr. Hilario and Dr. Shaikh. Patient was discharged with the following instructions: Please take the following medications as prescribed: Calcium supplement daily Vitamin B12 1000 mcg daily Neurontin 300 mg twice a day as needed for neuropathy Levothyroxine 25 mcg daily Vitamin B6 100 mg daily Albuterol 2 puffs inhaled as needed for shortness of breath Lisinopril 10 mg daily Please discontinue hydrochlorothiazide (in favor of the lisinopril as described above). Please follow up with your primary care provider, Dr. Regan, in 1 week. Please note that this is a summary of events. For more details, please see complete medical record. Discharge Exam - Head Exam Head Exam: NORMAL INSPECTION - Eye Exam Eye Exam: EOMI, Normal appearance, PERRL - ENT Exam ENT Exam: Mucous Membranes Moist - Respiratory Exam Respiratory Exam: Clear to PA & Lateral, NORMAL BREATHING PATTERN, UNREMARKABLE - Cardiovascular Exam Cardiovascular Exam: RRR, +S1, +S2 - GI/Abdominal Exam GI & Abdominal Exam: Normal Bowel Sounds, Unremarkable - Extremities Exam Extremities exam: normal inspection - Neurological Exam Neurological exam: Alert, Oriented x3 - Psychiatric Exam Psychiatric exam: Normal Affect, Normal Mood - Skin Skin Exam: Dry, Intact, Normal Color, Warm Discharge Plan - Discharge Medications Prescriptions: Albuterol 0.083% [Albuterol 0.083% Inhal [place]ika (2.5 mg/3 ml) UD] 2 puff INH BID PRN #1 neb PRN Reason: Shortness Of Breath Calcium Carbonate [Calcium] 500 mg PO DAILY #30 tablet Cyanocobalamin [Vitamin B12 1000 mcg Tab] 1,000 mcg PO DAILY #30 tab Gabapentin [Neurontin] 300 mg PO BID PRN #60 cap PRN Reason: pain Levothyroxine Sodium [Levoxyl] 25 mcg PO DAILY #30 tablet Lisinopril [Zestril] 10 mg PO DAILY #30 tab Pyridoxine [Vitamin B6] 100 mg PO DAILY #30 tab - Follow Up Plan Condition: GOOD Disposition: HOME/ ROUTINE Instructions: Heart Healthy Diet, Paresthesias (DC), Albuterol, Calcium Carbonate, Cyanocobalamin, Gabapentin, Levothyroxine, Lisinopril, Pyridoxine Additional Instructions: Please take the following medications as prescribed: Calcium supplement daily Vitamin B12 1000 mcg daily Neurontin 300 mg twice a day as needed for neuropathy Levothyroxine 25 mcg daily Vitamin B6 100 mg daily Albuterol 2 puffs inhaled as needed for shortness of breath Lisinopril 10 mg daily Please discontinue hydrochlorothiazide (in favor of the lisinopril as described above). Please follow up with your primary care provider, Dr. Regan, in 1 week. Referrals: Scarlett Regan MD [Staff Provider] - <Rayshawn Shaikh - Last Filed: 08/26/17 18:24> Provider - Provider Date of Admission: 08/25/17 12:45 Attending physician: Rayshawn Shaikh MD Time Spent in preparation of Discharge (in minutes): 40 Hospital Course - Lab Results Lab Results: Micro Results 08/25/17 09:06 Urine Urine Culture - Final 50-100,000 CFU/ML. MULTIPLE SPECIES. SUGGEST REPEAT SPECIMEN. Most Recent Lab Values WBC 6.8 K/uL (4.8-10.8) 08/26/17 07:39 RBC 3.21 Mil/uL (3.80-5.20) L 08/26/17 07:39 Hgb 10.2 g/dL (11.0-16.0) L 08/26/17 07:39 Hct 29.9 % (34.0-47.0) L 08/26/17 07:39 MCV 93.3 fL (81.0-99.0) 08/26/17 07:39 MCH 31.9 pg (27.0-31.0) H 08/26/17 07:39 MCHC 34.2 g/dL (33.0-37.0) 08/26/17 07:39 RDW 15.1 % (11.5-14.5) H 08/26/17 07:39 Plt Count 345 K/uL (130-400) 08/26/17 07:39 MPV 6.8 fL (7.2-11.7) L 08/26/17 07:39 Neut % (Auto) 57.6 % (50.0-75.0) 08/26/17 07:39 Lymph % (Auto) 27.1 % (20.0-40.0) 08/26/17 07:39 [place] % (Auto) 12.1 % (0.0-10.0) H 08/26/17 07:39 Eos % (Auto) 1.8 % (0.0-4.0) 08/26/17 07:39 Baso % (Auto) 1.4 % (0.0-2.0) 08/26/17 07:39 Neut # (Auto) 3.9 K/uL (1.8-7.0) 08/26/17 07:39 Lymph # (Auto) 1.8 K/uL (1.0-4.3) 08/26/17 07:39 [place] # (Auto) 0.8 K/uL (0.0-0.8) 08/26/17 07:39 Eos # (Auto) 0.1 K/uL (0.0-0.7) 08/26/17 07:39 Baso # (Auto) 0.1 K/uL (0.0-0.2) 08/26/17 07:39 PT 11.6 SECONDS (9.7-12.2) 08/25/17 09:33 INR 1.0 08/25/17 09:33 APTT 26 SECONDS (21-34) 08/25/17 09:33 Sodium 137 mmol/L (132-148) 08/26/17 07:39 Potassium 3.7 mmol/L (3.6-5.2) 08/26/17 07:39 Chloride 98 mmol/L (98-107) 08/26/17 07:39 Carbon Dioxide 28 mmol/L (22-30) 08/26/17 07:39 Anion Gap 15 (10-20) 08/26/17 07:39 BUN 14 mg/dL (7-17) 08/26/17 07:39 Creatinine 0.7 mg/dL (0.7-1.2) 08/26/17 07:39 Est GFR ( Amer) > 60 08/26/17 07:39 Est GFR (Non-Af Amer) > 60 08/26/17 07:39 Random Glucose 103 mg/dL (65-105) 08/26/17 07:39 Hemoglobin A1c 6.4 % (4.2-6.5) 08/26/17 07:39 Calcium 8.9 mg/dl (8.6-10.4) 08/26/17 07:39 Phosphorus 4.1 mg/dL (2.5-4.5) 08/26/17 07:39 Magnesium 2.1 mg/dL (1.6-2.3) 08/26/17 07:39 Total Bilirubin 0.5 mg/dL (0.2-1.3) 08/26/17 07:39 AST 29 U/L (14-36) 08/26/17 07:39 ALT 17 U/L (9-52) 08/26/17 07:39 Alkaline Phosphatase 59 U/L (38-126) 08/26/17 07:39 Total Creatine Kinase 125 U/L (30-135) 08/25/17 09:33 CK-MB (Mass) 2.28 ng/mL (0.0-3.38) 08/25/17 09:33 Troponin I < 0.0120 ng/mL (0.00-0.120) 08/25/17 09:33 Total Protein 7.5 g/dL (6.3-8.3) 08/26/17 07:39 Albumin 3.6 g/dL (3.5-5.0) 08/26/17 07:39 Globulin 3.8 gm/dL (2.2-3.9) 08/26/17 07:39 Albumin/Globulin Ratio 0.9 (1.0-2.1) L 08/26/17 07:39 Triglycerides 53 mg/dL (0-149) D 08/26/17 07:39 Cholesterol 143 mg/dL (0-199) 08/26/17 07:39 LDL Cholesterol Direct 89 mg/dL (0-129) 08/26/17 07:39 HDL Cholesterol 35 mg/dL (30-70) 08/26/17 07:39 Free T4 0.89 ng/dL (0.78-2.19) 08/26/17 07:39 TSH 3rd Generation 0.61 mIU/L (0.46-4.68) 08/26/17 07:39 Urine Color Straw (YELLOW) 08/25/17 09:24 Urine Clarity Clear (Clear) 08/25/17 09:24 Urine pH 7.0 (5.0-8.0) 08/25/17 09:24 Ur Specific [place] 1.008 (1.003-1.030) 08/25/17 09:24 Urine Protein Negative mg/dL (NEGATIVE) 08/25/17 09:24 Urine Glucose (UA) Normal mg/dL (Normal) 08/25/17 09:24 Urine Ketones Negative mg/dL (NEGATIVE) 08/25/17 09:24 Urine Blood Negative (NEGATIVE) 08/25/17 09:24 Urine Nitrate Negative (NEGATIVE) 08/25/17 09:24 Urine Bilirubin Negative (NEGATIVE) 08/25/17 09:24 Urine Urobilinogen Normal mg/dL (0.2-1.0) 08/25/17 09:24 Ur Leukocyte Esterase 1+ Enio/uL (Negative) H 08/25/17 09:24 Urine WBC (Auto) 2 /hpf (0-5) 08/25/17 09:24 Urine RBC (Auto) < 1 /hpf (0-3) 08/25/17 09:24 Ur Squamous Epith Cells 1 /hpf (0-5) 08/25/17 09:24 Urine Bacteria Rare (<OCC) 08/25/17 09:24 Urine Microalbumin < 6.0 mg/L (0.0-16.6) 08/26/17 14:42 Attending/Attestation - Attestation I have personally seen and examined this patient.: Yes I have fully participated in the care of the patient.: Yes I have reviewed all pertinent clinical information, including history, physical exam and plan: Yes Notes (Text): 08/26/17 18:23 Patient was seen and examined shortly after resident Dr. Adrian Parish Exam, assessment and plan and discharge instructions were gone over with resident. Discharge instructions were also explained to patient. Rayshawn Shaikh D.O.
== END 2017-08-26 14:49 | disposition home or self-care (01) ==
LOC: C.ER 08:20 → C.9E 12:45 → C.6T 14:49
PROVIDERS: ADMIT Family Medicine; ATTEND Family Medicine
DX: R20.0 Anesthesia of skin (principal); I77.819 Aortic ectasia, unspecified site; I11.9 Hypertensive heart disease without heart failure; E89.0 Postprocedural hypothyroidism; E53.8 Deficiency of other specified B group vitamins; Z88.6 Allergy status to analgesic agent; Z88.0 Allergy status to penicillin; Z91.013 Allergy to seafood; Z87.440 Personal history of urinary (tract) infections; E11.42 Type 2 diabetes mellitus with diabetic polyneuropathy
CPT/HCPCS: 36415; 70450; 70544; 70547; 70551; 71045; 80053; 80061; 81001; 82043; 82550; 82553; 82570; 83036; 83735; 84100; 84439; 84443; 84484; 85025; 85610; 85730; 87086; 93306; 97116; 97161; 97165; 97530; 99285; G0378; G8978; G8979; G8980; G8987; G8988; G8989